=== PATIENT | male | born 1950 | race Caucasian/White ===

== ENCOUNTER 2018-01-31 17:08 | Emergency (ER) | payer MEDICAID, OTHER ==
[2018-01-31] MEDS ORDERED: NS 1,000 ML IV ONE (17:18)
--- NOTE | 2018-01-31 17:18 | EDPHY ---
H & P Stated Complaint: 10 days no apetite/back pain/l flank pain/constipation/ excessive urination Time Seen by Provider: 01/31/18 17:18 HPI/ROS: HPI CHIEF COMPLAINT: Abdominal bloating, constipation. HISTORY OF PRESENT ILLNESS: 67-year-old male, history of hypertension, presents emergency room with abdominal bloating and constipation. He states he has not had a bowel movement in 10 days. Patient denies vomiting, denies chest pain or shortness of breath, denies fever. He reports to me that he has used multiple enemas and gets minimal output. He denies any rectal pain or rectal fullness, complains of abdominal bloating. He stops eating 24 hr ago as he stated when he ate solid foods that caused him some abdominal discomfort. No recent narcotic use, no surgery. States he normally has a bowel movement every day. He has had a colonoscopy he reports that was normal Past Medical History: Hypertension Past Surgical History: No recent surgical history but history of appendectomy Social History: Denies drugs alcohol tobacco. Family History: Noncontributory ROS REVIEW OF SYSTEMS: 10 Systems were reviewed and negative with the exception of the elements mentioned in the history of present illness. Exam Constitutional nontoxic triage nursing summary reviewed, vital signs reviewed, awake/alert. Eyes normal conjunctivae and sclera, EOMI, PERRLA. HENT normal inspection, atraumatic, moist mucus membranes, no epistaxis, neck supple/ no meningismus, no raccoon eyes. Respiratory clear to auscultation bilaterally, normal breath sounds, no respiratory distress, no wheezing. Cardiovascular rate normal, regular rhythm, no murmur, no edema, distal pulses normal. Gastrointestinal mildly tender diffusely, no peritoneal signs, hyperactive bowel sounds no rebound, no guarding, no distension, no pulsatile mass. Genitourinary no CVA tenderness. Musculoskeletal no midline vertebral tenderness, full range of motion, no calf swelling, no tenderness of extremities, no meningismus, good pulses, neurovascularly intact. Skin pink, warm, & dry, no rash, skin atraumatic. Neurologic awake, alert and oriented x 3, AAOx3, moves all 4 extremities equally, motor intact, sensory intact, CN II-XII intact, normal cerebellar, normal vision, normal speech. Psychiatric normal mood/affect. Heme/Lymph/Immune no lymphadenopathy. Differential diagnosis includes but is not limited to and in no particular order : Constipation, fecal impaction, ileus, Bowel obstruction, appendicitis, gallbladder disease, diverticulitis, colitis, enteritis, perforated viscus, gastritis, GERD, esophagitis, urinary tract infection, pyelonephritis, kidney stones Medical Decision Making: Plan for this patient IV establishment IV fluid bolus , KUB, basic blood work and re-evaluate. Re-evaluation: KUB shows constipation no abnormal bowel gas pattern. No free air. Plan for soapsuds enema here and re-evaluate. Additionally blood work reviewed normal lytes. CBC is not elevated. Somewhat hemoconcentrated CT scan abdomen pelvis with IV contrast reviewed shows constipation. Additionally sigmoid region there is possibly a polyp seen on CT versus underdistention. I have discussed this at length the patient. I do recommend close follow-up with a storage wharfage clerk. He should proceed with colonoscopy to further evaluate this. I discussed this with him. He understands. Additionally upon it is CT report. Return precautions discussed. Source: Patient - Personal History Current Tetanus Diphtheria and Acellular Pertussis (TDAP): Yes - Medical/Surgical History Hx Asthma: No Hx Chronic Respiratory Disease: No Hx Diabetes: No Hx Cardiac Disease: No Hx Renal Disease: No Hx Cirrhosis: No Hx Alcoholism: No Hx HIV/AIDS: No Hx Splenectomy or Spleen Trauma: No Other PMH: HTN - Social History Smoking Status: Former smoker Constitutional: Initial Vital Signs Temperature (C) 37.3 C 01/31/18 17:12 Heart Rate 82 01/31/18 17:12 Respiratory Rate 18 01/31/18 17:12 Blood Pressure 171/114 H 01/31/18 17:12 O2 Sat (%) 96 01/31/18 17:12 O2 Delivery Mode Room Air Allergies/Adverse Reactions: ciprofloxacin [From Cipro] Allergy (Verified 01/31/18 17:11) ciprofloxacin HCl [From Cipro] Allergy (Verified 01/31/18 17:11) clindamycin Allergy (Verified 01/31/18 17:11) Home Medications: Medication Instructions Recorded Lisinopril-Hctz 10-12.5 mg Tab 01/31/18 Polyethylene Glycol 3350 [Miralax 17 gm PO DAILY #4 pkt 01/31/18 17 gm (*)] Medical Decision Making - Diagnostics Imaging Results: Imaging Impressions Abdomen X-Ray 01/31/18 17:18 Impression: Moderate stool in the proximal colon with no definite acute findings. Abdomen CT 01/31/18 19:53 Impression: 1. Moderate constipation/obstipation, with a questionable 15 mm polypoid mass along the lower left lateral aspect of the sigmoid colon. Colonoscopic correlation is advised. 2. Nonobstructive right nephrolithiasis, and a 1.6 cm simple cyst in the upper pole of the right kidney. Findings were discussed with Chau Paniagua MD at 20:26, on 01/31/2018. A test result has been communicated to a licensed care provider and documented in the [employer] Critical Result system on 01/31/2018 20:27, Message ID [id number]. - Data Points Laboratory Results: Laboratory Results 01/31/18 17:30 01/31/18 17:30 01/31/18 01/31/18 01/31/18 18:00 17:30 17:30 WBC 9.21 10^3/uL 10^3/uL (3.80-9.50) RBC 6.03 10^6/uL 10^6/uL (4.40-6.38) Hgb 17.8 g/dL H g/dL (13.7-17.5) Hct 51.1 % H % (40.0-51.0) MCV 84.7 fL fL (81.5-99.8) MCH 29.5 pg pg (27.9-34.1) MCHC 34.8 g/dL g/dL (32.4-36.7) RDW 13.5 % % (11.5-15.2) Plt Count 288 10^3/uL 10^3/uL (150-400) MPV 9.6 fL fL (8.7-11.7) Neut % (Auto) 69.5 % % (39.3-74.2) Lymph % (Auto) 19.5 % % (15.0-45.0) [place] % (Auto) 9.0 % % (4.5-13.0) Eos % (Auto) 1.0 % % (0.6-7.6) Baso % (Auto) 0.7 % % (0.3-1.7) Nucleat RBC Rel Count 0.0 % % (0.0-0.2) Absolute Neuts (auto) 6.40 10^3/uL 10^3/uL (1.70-6.50) Absolute Lymphs (auto) 1.80 10^3/uL 10^3/uL (1.00-3.00) Absolute Monos (auto) 0.83 10^3/uL H 10^3/uL (0.30-0.80) Absolute Eos (auto) 0.09 10^3/uL 10^3/uL (0.03-0.40) Absolute Basos (auto) 0.06 10^3/uL 10^3/uL (0.02-0.10) Absolute Nucleated RBC 0.00 10^3/uL 10^3/uL (0-0.01) Immature Gran % 0.3 % % (0.0-1.1) Immature Gran # 0.03 10^3/uL 10^3/uL (0.00-0.10) Sodium 136 mEq/L mEq/L (135-145) Potassium 4.1 mEq/L mEq/L (3.3-5.0) Chloride 98 mEq/L mEq/L (97-110) Carbon Dioxide 24 mEq/l mEq/l (22-31) Anion Gap 14 mEq/L mEq/L (6-14) BUN 14 mg/dL mg/dL (7-23) Creatinine 1.2 mg/dL mg/dL (0.7-1.3) Estimated GFR > 60 Glucose 97 mg/dL mg/dL (70-100) Calcium 10.3 mg/dL mg/dL (8.5-10.4) Total Bilirubin 1.1 mg/dL mg/dL (0.1-1.4) Conjugated Bilirubin 0.2 mg/dL mg/dL (0.0-0.5) Unconjugated Bilirubin 0.9 mg/dL mg/dL (0.0-1.1) AST 40 IU/L IU/L (17-59) ALT 50 IU/L IU/L (21-72) Alkaline Phosphatase 74 IU/L IU/L (38-126) Total Protein 7.7 g/dL g/dL (6.3-8.2) Albumin 4.9 g/dL g/dL (3.5-5.0) Lipase 286 IU/L IU/L (23-300) Urine Color YELLOW Urine Appearance CLEAR Urine pH 6.0 (5.0-7.5) Ur Specific [place] 1.006 (1.002-1.030) Urine Protein NEGATIVE (NEGATIVE) Urine Ketones TRACE H (NEGATIVE) Urine Blood NEGATIVE (NEGATIVE) Urine Nitrate NEGATIVE (NEGATIVE) Urine Bilirubin NEGATIVE (NEGATIVE) Urine Urobilinogen NEGATIVE EU EU (0.2-1.0) Ur Leukocyte Esterase NEGATIVE (NEGATIVE) Urine Glucose NEGATIVE (NEGATIVE) Medications Given: Discontinued Medications Sodium Chloride (Ns) 1,000 mls @ 0 mls/hr IV EDNOW ONE; Wide Open PRN Reason: Protocol Stop: 01/31/18 17:19 Last Admin: 01/31/18 17:30 Dose: 1,000 mls Departure - Departure Disposition: Home, Routine, Self-Care Clinical Impression: Constipation Condition: Good Instructions: Constipation (ED) Additional Instructions: 1. Drink lots of fluids stay well-hydrated 2. Return if worsening abdominal pain, fever, vomiting. 3.I do recommend close follow-up with a storage wharfage clerk. You should proceed with colonoscopy to further evaluate this potential polyp seen on ct. 4. stool softeners. Referrals: Kerry Collins, AMAYA [Primary Care Provider] - As per Instructions Mandeep Valenzuela MD [Medical Doctor] - As per Instructions Prescriptions: Polyethylene Glycol 3350 [Miralax 17 gm (*)] 17 gm PO DAILY #4 pkt
[2018-01-31 17:46] LABS: PLATELET COUNT 288 10^3/uL (150-400)
[2018-01-31] MEDS ORDERED: IOPAMIDOL (ISOVUE-300) 100 ML BTL ONE (19:55)
[2018-01-31 20:16] VITALS: BP 154/95
== END 2018-01-31 21:04 | disposition home or self-care (01) ==
DX: K59.00 Constipation, unspecified (principal); I10 Essential (primary) hypertension; K63.89 Other specified diseases of intestine; N20.0 Calculus of kidney; N28.1 Cyst of kidney, acquired
CPT/HCPCS: Q9967